=== PATIENT | male | born 1960 | race Caucasian/White ===

== ENCOUNTER 2018-10-22 07:06 | Day surgery (SDC) | payer SELFPAY ==
[~2018-10-22] VITALS: Ht 182.9 cm; Wt 93.0 kg
[2018-10-22 11:10] VITALS: BP 111/66
== END 2018-10-22 11:25 | disposition home or self-care (01) | DRG 951 ==
LOC: ENDO 07:06 → ORM 10:00 → ENDO 11:25
PROVIDERS: ATTEND Surgery
PROC: 0DBH8ZX Excision of Cecum, Via Natural or Artificial Opening Endoscopic, Diagnostic (ICD-10-PCS; principal; 2018-10-22)
PROC: 0DBL8ZX Excision of Transverse Colon, Via Natural or Artificial Opening Endoscopic, Diagnostic (ICD-10-PCS; 2018-10-22)
PROC: 0DBN8ZX Excision of Sigmoid Colon, Via Natural or Artificial Opening Endoscopic, Diagnostic (ICD-10-PCS; 2018-10-22)
DX: Z12.11 Encounter for screening for malignant neoplasm of colon (principal); K57.30 Diverticulosis of large intestine without perforation or abscess without bleeding; D12.0 Benign neoplasm of cecum; D12.3 Benign neoplasm of transverse colon; D12.5 Benign neoplasm of sigmoid colon; K64.8 Other hemorrhoids; Z80.0 Family history of malignant neoplasm of digestive organs